=== PATIENT | male | born 1965 | race Two or more races ===

== ENCOUNTER 2023-11-30 08:41 | Emergency (ER) | payer OTHER ==
[~2023-11-30] VITALS: Ht 185.4 cm; Wt 81.6 kg
[2023-11-30] MEDS ORDERED: IBUP-1957 PO (10:27)
[2023-11-30 10:42] VITALS: BP 130/78; TEMP 98; O2SAT 99
== END 2023-11-30 10:43 | disposition home or self-care (01) ==
LOC: ER 09:02
DX: M25.551 Pain in right hip (principal); M79.605 Pain in left leg; V89.2XXA Person injured in unspecified motor-vehicle accident, traffic, initial encounter; Y93.89 Activity, other specified; Y92.488 Other paved roadways as the place of occurrence of the external cause; Y99.8 Other external cause status
CPT/HCPCS: 73590-TC

== ENCOUNTER 2023-12-03 09:29 | Emergency (ER) | payer OTHER ==
[~2023-12-03] VITALS: Ht 177.8 cm; Wt 77.1 kg
[~2023-12-03 09:29] MED LIST: IBUP-1957 PO
[2023-12-03] MEDS ORDERED: KETOROLAC TROMETHAMINE INJ 30 MG/ML VIAL ONE (09:56)
[2023-12-03] MEDS: KETOROLAC TROMETHAMINE INJ 30 MG/ML VIAL IM ONE (10:05)
[2023-12-03] MEDS ORDERED: NAPR-1009 PO (11:05)
[2023-12-03 11:21] VITALS: BP 136/84; TEMP 98.2; O2SAT 98
== END 2023-12-03 11:22 | disposition home or self-care (01) ==
LOC: ER 09:34
DX: M25.551 Pain in right hip (principal); M54.50 Low back pain, unspecified; Z79.1 Long term (current) use of non-steroidal anti-inflammatories (NSAID); V89.2XXA Person injured in unspecified motor-vehicle accident, traffic, initial encounter; Y93.89 Activity, other specified; Y92.89 Other specified places as the place of occurrence of the external cause; Y99.8 Other external cause status
CPT/HCPCS: 99285; 73700; 96372; 72110; J1885